=== PATIENT | female | born 1945 | race Caucasian/White ===

== ENCOUNTER 2018-11-08 21:27 | Emergency (ER) | payer OTHER ==
[~2018-11-08] VITALS: Ht 152.4 cm; Wt 68.0 kg
[2018-11-08] MEDS ORDERED: HYZAAR 50-12.51 EACH (21:38)
[2018-11-08] MEDS ORDERED: ZOCOR40 MG (21:39)
[2018-11-08] MEDS ORDERED: TOPROL XL50 MG (21:39)
[2018-11-08] MEDS ORDERED: FORTAMET1000 MG (21:39)
[2018-11-08] MEDS ORDERED: ASPIR 8181 MG (21:39)
[2018-11-09] MEDS ORDERED: TESSALON PERLE100 M1 PO (00:45)
[2018-11-09] MEDS ORDERED: AIRBORNE EFFER1 EACH PO (00:45)
== END 2018-11-09 01:05 | disposition home or self-care (01) ==
LOC: ER 21:27
DX: R05 Cough (principal); J11.1 Influenza due to unidentified influenza virus with other respiratory manifestations

== ENCOUNTER 2019-02-19 14:14 | Emergency (ER) | payer OTHER ==
[~2019-02-19] VITALS: Ht 152.4 cm; Wt 68.0 kg
[~2019-02-19 14:14] MED LIST: AIRBORNE EFFER1 EACH PO; ASPIR 8181 MG; FORTAMET1000 MG; HYZAAR 50-12.51 EACH; TESSALON PERLE100 M1 PO; TOPROL XL50 MG; ZOCOR40 MG
== END 2019-02-19 16:10 | disposition home or self-care (01) ==
LOC: ER 14:14
DX: J06.9 Acute upper respiratory infection, unspecified (principal)